=== PATIENT | male | born 1945 | race Caucasian/White ===

== ENCOUNTER → 2021-06-18 10:48 | Outpatient (CLI) | payer OTHER, SELFPAY ==
[2021-06-18 12:47] LABS: BUN Creatinine Ratio 17.1 (6-22); Blood Urea Nitrogen 13 mg/dL (9-20); Calcium 9.7 mg/dL (8.4-10.2); Carbon Dioxide 24 mmol/L (22-32); Chloride 106 mmol/L (98-107); Estimated Glomerular Filt Rate > 60.0 mL/min (>60); Glucose 124 mg/dL (80-110); HEMOLYSIS < 15 (0-50); Sodium 137 mmol/L (137-145)
[2021-06-18 13:15] LABS: TSH w/ Reflex to FT4 3.69 uIU/mL (0.47-4.68)
== END ==
PROVIDERS: Family Provider Orthopaedic Surgery; PCP Student in an Organized Health Care Education/Training Program; Referring Provider Student in an Organized Health Care Education/Training Program; Visit Provider Student in an Organized Health Care Education/Training Program
DX: I10 Essential (primary) hypertension (principal); E87.6 Hypokalemia; R68.89 Other general symptoms and signs
CPT/HCPCS: 36415; 80048; 84443

== ENCOUNTER → 2022-05-28 11:21 | Outpatient (CLI) | payer OTHER, SELFPAY ==
[2022-05-28 12:18] LABS: BUN Creatinine Ratio 16.9 (6-22); Blood Urea Nitrogen 12 mg/dL (9-20); Carbon Dioxide 26 mmol/L (22-32); Chloride 100 mmol/L (98-107); Estimated Glomerular Filt Rate > 60 mL/min (>60); Glucose 115 mg/dL (80-110); HEMOLYSIS 48 (0-50); Sodium 139 mmol/L (137-145)
== END ==
PROVIDERS: Family Provider Orthopaedic Surgery; PCP Student in an Organized Health Care Education/Training Program; Referring Provider Student in an Organized Health Care Education/Training Program; Visit Provider Student in an Organized Health Care Education/Training Program
DX: I10 Essential (primary) hypertension (principal); R73.03 Prediabetes
CPT/HCPCS: 36415; 80048

== ENCOUNTER → 2022-07-01 09:22 | Outpatient (CLI) | payer OTHER, SELFPAY ==
--- NOTE | 2022-07-01 09:23 | DI.US.S_ITS ---
PROCEDURE: US ABDOMEN LIMITED INDICATIONS: RLQ PAIN AND MASS. HERNIA? TECHNIQUE: Real-time focused scanning was performed of the abdomen, with image documentation. COMPARISON: None. FINDINGS: Within the right lower quadrant, there is a hernia seen, which contains echogenic fat and bowel. The abdominal wall defect measures 3.2 cm. At the beginning of the examination, fluid could also be seen within the herniation, yet is not seen at the end of the examination. IMPRESSION: Right lower quadrant abdominal wall hernia, containing fat, bowel, and transient fluid. Surgical consultation is recommended. If clinically appropriate, CT with at least IV contrast could be also be considered for further evaluation. Dictated by: Micah Gomez M.D. on 07/01/2022 at 9:25 Approved by: Micah Gomez M.D. on 07/01/2022 at 9:28
== END ==
PROVIDERS: Family Provider Orthopaedic Surgery; PCP Student in an Organized Health Care Education/Training Program; Referring Provider Student in an Organized Health Care Education/Training Program; Visit Provider Student in an Organized Health Care Education/Training Program
DX: K43.9 Ventral hernia without obstruction or gangrene (principal); R10.31 Right lower quadrant pain
CPT/HCPCS: 76705

== ENCOUNTER → 2022-07-17 10:12 | Outpatient (CLI) | payer OTHER, SELFPAY ==
--- NOTE | 2022-07-17 10:13 | DI.CT.S_ITS ---
PROCEDURE: CT ABDOMEN PELVIS W CON INDICATIONS: preop ventral hernia TECHNIQUE: After the administration of oral and intravenous contrast, axial sections were acquired from the lung bases to the pubic symphysis. Coronal and sagittal reformats were performed. For radiation dose reduction, the following was used: automated exposure control, adjustment of mA and/or kV according to patient size. COMPARISON:None. FINDINGS: Image quality: Excellent. Lung bases: There are multiple bilateral pulmonary soft tissue nodules which appear to be located in a random distribution within the lung bases. The largest measures 8 mm in diameter within the right middle lobe (series 5/image 6). No pleural effusion or pneumothorax. Heart: No significant findings. ABDOMEN: Liver: The liver demonstrates STIR diffuse surface nodularity suggesting cirrhotic transformation. Several hypodense mass lesions are visualized within the liver, including a 3.1 cm lesion within hepatic segment VIII and a 2.7 cm lesion within hepatic segment . Gallbladder: Unremarkable. Biliary ducts: Unremarkable. Pancreas: A centrally hypodense, peripherally enhancing mass is present within the pancreas that measures roughly 4.4 x 6.4 x 3.3 cm. This encompasses the body and tail of the pancreas. The head of the pancreas is grossly normal. Spleen: Unremarkable. Adrenal Glands: Unremarkable. Kidneys and Ureters: Unremarkable. Stomach and Bowel: The stomach is partially filled with contrast. The small bowel demonstrates overall normal course and caliber. There are extensive colonic diverticular outpouchings throughout the colon without discrete perienteric fat stranding or wall thickening. A centrally hypodense, peripherally enhancing spiculated mass is present along the wall of the hepatic flexure which measures approximately 4.6 cm in the axial plane. A similar appearing mass is present just superior to the hepatic flexure within the gallbladder fossa which measures approximately 6.7 cm in the axial plane. Multiple similar appearing centrally relatively hypodense and peripherally enhancing spiculated mass lesions are visualized throughout the peritoneal space. 1 of these spiculated enhancing mass lesions extends into the large right inguinal hernia where there is also some fluid present. Peritoneum: There is diffuse low-density ascites throughout the abdomen. Multiple enhancing peritoneal mass lesions are present as described above. Ventral Wall: No hernia. Abdominal Nodes: No discrete enlarged retroperitoneal lymph nodes visualized; however individual nodes are difficult to characterize. Vessels: There are scattered atheromatous calcifications throughout the aorta and iliac arteries bilaterally. A filling defect is visualized within the superior mesenteric vein and within the central portion of the portal vein suggesting either bland or tumor thrombus. PELVIS: Pelvic Organs: Unremarkable. Bladder: Unremarkable. Pelvic Nodes: No enlarged lymph nodes. Miscellaneous: There are bilateral inguinal hernias. The right inguinal hernia contains both fluid and a portion of an enhancing spiculated mass lesion. The left hernia contains fluid and mesenteric fat. Bones: Unremarkable. IMPRESSION: 1. Multiple abnormal findings associated with a diffuse neoplastic process including: A. Multiple pulmonary nodules at the lung bases consistent with pulmonary metastasis. B. Multiple hypodense hepatic mass lesions suspicious with hepatic metastasis. C. Spiculated mass within the body and tail of the pancreas. D. Multiple spiculated mass lesions throughout the peritoneum, 1 or 2 of which appear to be associated with the colon. E. Questionable tumor thrombus versus bland thrombus within the superior mesenteric vein and portal vein. 2. Bilateral inguinal hernias. The right inguinal hernia likely includes a metastatic peritoneal implant. 3. Diverticulosis. No acute diverticulitis. 4. Large volume low-density ascites. These findings were discussed Dori Henderson RN at 2:55 p.m. On July 17, 2022. Dictated by: Denise Moreno M.D. on 07/17/2022 at 14:37 Approved by: Denise Moreno M.D. on 07/17/2022 at 15:00
[2022-07-17 10:51] LABS: BUN Creatinine Ratio 17.8 (6-22); Blood Urea Nitrogen 13 mg/dL (9-20); Calcium 8.7 mg/dL (8.4-10.2); Carbon Dioxide 21 mmol/L (22-32); Chloride 101 mmol/L (98-107); Estimated Glomerular Filt Rate > 60 mL/min (>60); Glucose 123 mg/dL (80-110); HEMOLYSIS 18 (0-50); Potassium 3.9 mmol/L (3.4-5.1); Sodium 137 mmol/L (137-145)
== END ==
PROVIDERS: Family Provider Orthopaedic Surgery; PCP Student in an Organized Health Care Education/Training Program; Referring Provider Surgery; Visit Provider Surgery
DX: K43.9 Ventral hernia without obstruction or gangrene (principal); R18.8 Other ascites; R91.8 Other nonspecific abnormal finding of lung field; K76.9 Liver disease, unspecified; K86.9 Disease of pancreas, unspecified; K66.9 Disorder of peritoneum, unspecified; K40.20 Bilateral inguinal hernia, without obstruction or gangrene, not specified as recurrent; K57.90 Diverticulosis of intestine, part unspecified, without perforation or abscess without bleeding
CPT/HCPCS: 36415; 74177; 80048; Q9967

== ENCOUNTER 2022-07-18 13:23 | Emergency (ER) | payer OTHER, SELFPAY ==
[2022-07-18 13:59] VITALS: BP 139/77; PULSE 77; RESP 16; TEMP 36.6; O2SAT 98; BMI 31.6
--- NOTE | 2022-07-18 14:14 | PC.NURSE ---
PIV unsuccessful x2
--- NOTE | 2022-07-18 17:24 | CM.IDA ---
Initial Brief DCP Assessment Patient is 77 y/o male who presents to via recommendation from Surgeon Dr. Hilario. Per Dr. Hilario, he is admitting patient to . Patient was originally scheduled for hernia surgery this month but per recent CT scan patient has several masses on pancreas and there is new dx of Pancreatic cancer. Patient's PCP is Dr. Marco A Dugan, patient has, Patient has [facility] insurance. This MARKETING AUTOMATION MANAGER attempted to meet with patient upon arrival to ED, but shortly afterwards patient was admitted to acute care by Dr. Hilario. Per Dr. Hilario, patient is being admitted for pain management and further medical evaluation to determine POC. Per Tamra, MARKETING AUTOMATION MANAGER- [facility] has availability for new intake appt tomorrow if needed and CT scan and face sheet were faxed to them. This MARKETING AUTOMATION MANAGER calls [facility] regarding patient's admission and it is not likely that patient will d/c tomorrow in time for appt as patient has not discussed preference for POC. Plan: DCP to have conversation with patient regarding POC preference after further medical evaluation. Hospice at Home vs. Cancer treatment. JAG Kendall Discharge Planning/Care Management CM Discharge Assessment Start: 07/18/22 17:17 Freq: Status: Active Protocol: Document 07/18/22 17:20 LN (Rec: 07/18/22 17:24 LN [id number]) Discharge Planning Assessment Assigned Gas Distribution Plant Operator JAG Delacruz DPOA/Assigned Designee Name Zainab Mcallister/spouse Contact Information [phone] Advance Directives? No History Provided By Medical Record Has Patient been admitted in last 30 No days? Prior Living Arrangements House Household Members spouse Type of transporation used prior to Drives own vehicle admit Independent with ADL's Yes Is patient alert and oriented? Yes Comment Hospice vs. Cancer treatment Review Status In Process Please Provide Date Initial DC 07/17/22 Assessment Was Performed
[2022-07-18 18:30] LABS: Add Manual Diff / Slide Review NO; Basophils Absolute Auto 100 /uL (0-100); Basophils Percent Auto 0.9 % (0-2); Eosinophils Absolute Auto 100 /uL (0-450); Hematocrit 43.5 % (41-53); Hemoglobin 14.5 g/dL (13.5-17.5); Lymphocytes Absolute Auto 1100 /uL (1100-4500); Lymphocytes Percent Auto 12.2 % (25-40); Mean Corpuscular HGB Conc 33.4 % (30-36); Mean Corpuscular Hemoglobin 30.6 PG (26-34); Mean Corpuscular Volume 91.7 fL (80-100); Monocytes Absolute Auto 1100 /uL (0-900); Monocytes Percent Auto 13.3 % (3-14); Neutrophils Absolute Auto 6300 /uL (1500-7000); Neutrophils Percent Auto 72.6 % (50-75); Platelet Count 231 X10^3/uL (150-400); Red Blood Cell Count 4.75 X10^6/uL (4.5-5.9); Red Cell Distribution Width 14.1 % (11.6-14.8); White Blood Cell Count 8.7 X10^3/uL (4.5-11.0)
[2022-07-18 18:35] LABS: INR 1.3 (0.9-1.3); Prothrombin Time 15.4 SECONDS (10.1-12.7)
[2022-07-18 18:41] LABS: Alanine Aminotransferase 23 IU/L (<50); Albumin 3.6 g/dL (3.5-5.0); Albumin Globulin Ratio 1.1 (1.0-2.8); Alkaline Phosphatase 261 U/L (38-126); Aspartate Aminotransferase 57 IU/L (17-59); BUN Creatinine Ratio 17.3 (6-22); Bilirubin Total 1.1 mg/dL (0.2-1.3); Blood Urea Nitrogen 13 mg/dL (9-20); Calcium 8.8 mg/dL (8.4-10.2); Carbon Dioxide 26 mmol/L (22-32); Chloride 99 mmol/L (98-107); Estimated Glomerular Filt Rate > 60 mL/min (>60); Globulin 3.2 g/dL (1.7-4.1); Glucose 95 mg/dL (80-110); HEMOLYSIS < 15 (0-50); Lipase 171 U/L (23-300); Sodium 134 mmol/L (137-145); Total Protein 6.8 g/dL (6.3-8.2)
--- NOTE | 2022-07-23 10:12 | ED_ITS ---
HPI - Abdominal Pain General Chief Complaint: Abdominal Pain Stated Complaint: Pain Time Seen by Provider: 07/18/22 13:41 Source: patient Mode of arrival: Ambulatory History of Present Illness HPI narrative: 77-year-old male presents with newly diagnosed upper abdominal mass lesion concerning for pancreatic cancer. Patient referred to this hospital for further workup in the inpatient setting. Attempt at admitting the patient as a direct admit was not successful the patient presented to the emergency department for admission. Patient reports diffuse upper abdominal pain, weight loss that has been ongoing for the last several months. Related Data Previous Rx's Medication Instructions Recorded nifedipine 30 mg tablet,extended 30 mg PO DAILY #90 tabs 05/30/22 release 24 hr (Procardia XL) ondansetron 4 mg disintegrating 4 mg PO Q6H PRN nausea and 07/19/22 tablet vomiting #60 tabs oxycodone 5 mg tablet 5 mg PO Q6H PRN pain #75 tabs 07/19/22 Allergies Allergy/AdvReac Type Severity Reaction Status Date / Time sulfur dioxide AdvReac Verified 07/18/22 14:05 Patient History Medical History Allergies (~2000) Bronchitis Chicken pox Measles (~1950) Mumps Osteoarthritis (~2018) Surgical History Anesthesia History of carpal tunnel release (~1965) History of cataract removal with insertion of prosthetic lens (~2004) History of hip replacement (~2019) History of knee replacement (~2009) Family History Mother alf resident Hypertension Social History household members: spouse Smoking Status: Former smoker Smoking Status: Former smoker alcohol intake frequency: 0-2 drinks per day Substance Use Type: does not use Exam Narrative Exam Narrative: Vitals reviewed. Nursing note reviewed Constitutional: interactive HENT: Moist mucous membranes EYES: No scleral icterus NECK: no masses CV: Well perfused peripherally, no cyanosis present PULM: Unlabored respirations, symmetric chest rise ABD: Non-distended MS: No gross deformities, no asymmetric edema noted SKIN: Warm and dry. PSYCH: Appropriate affect NEURO: Follows simple commands, moves extremities, interactive with exam Initial Vital Signs Initial Vital Signs: Vital Signs Temperature 97.8 F 07/18/22 13:59 Pulse Rate 77 07/18/22 13:59 Respiratory Rate 16 07/18/22 13:59 Blood Pressure 139/77 07/18/22 13:59 Pulse Oximetry 98 07/18/22 13:59 Oxygen Delivery Method Room Air 07/18/22 13:59 MDM - Abdominal Pain Lab Data 07/18/22 18:13 07/18/22 18:13 Labs: Lab Results 07/18/22 07/18/22 07/18/22 Range/Units 18:13 18:13 18:13 WBC 8.7 (4.5-11.0) X10^3/uL RBC 4.75 (4.5-5.9) X10^6/uL Hgb 14.5 (13.5-17.5) g/dL Hct 43.5 (41-53) % MCV 91.7 (80-100) fL MCH 30.6 (26-34) PG MCHC 33.4 (30-36) % RDW 14.1 (11.6-14.8) % Plt Count 231 (150-400) X10^3/uL Neut % (Auto) 72.6 (50-75) % Lymph % (Auto) 12.2 L (25-40) % [place] % (Auto) 13.3 (3-14) % Eos % (Auto) 1.0 L (2-4) % Baso % (Auto) 0.9 (0-2) % Neut # (Auto) 6300 (9079-0793) /uL Lymph # (Auto) 1100 (2661-4862) /uL [place] # (Auto) 1100 H (0-900) /uL Eos # (Auto) 100 (0-450) /uL Baso # (Auto) 100 (0-100) /uL PT 15.4 H (10.1-12.7) SECONDS INR 1.3 (0.9-1.3) Sodium 134 L (137-145) mmol/L Potassium 4.0 (3.4-5.1) mmol/L Chloride 99 (98-107) mmol/L Carbon Dioxide 26 (22-32) mmol/L BUN 13 (9-20) mg/dL Creatinine 0.75 (0.66-1.25) mg/dL Estimated GFR > 60 (>60) mL/min BUN/Creatinine Ratio 17.3 (6-22) Glucose 95 (80-110) mg/dL Calcium 8.8 (8.4-10.2) mg/dL Total Bilirubin 1.1 (0.2-1.3) mg/dL AST 57 (17-59) IU/L ALT 23 (<50) IU/L Alkaline Phosphatase 261 H (38-126) U/L Total Protein 6.8 (6.3-8.2) g/dL Albumin 3.6 (3.5-5.0) g/dL Globulin 3.2 (1.7-4.1) g/dL Albumin/Globulin Ratio 1.1 (1.0-2.8) Lipase 171 (23-300) U/L [facility] Narrative Medical decision making narrative: 77-year-old presenting with newly diagnosed pancreatic mass concerning for malignancy. On presentation, vital signs reassuring. Physical exam notable for alert and interactive 77-year-old male who is in no acute distress. Given patient referred to this hospital for direct admission, patient was subsequently admitted for pain control in the setting of newly diagnosed metastatic disease. Patient was admitted shortly after initial evaluation in the emergency department. Discharge Plan Departure Patient Disposition: Home Clinical Impression: Patient left without being seen Prescriptions: No Action nifedipine [Procardia XL] 30 mg tablet extended release 24hr 30 mg PO DAILY Qty: 90 3RF oxycodone 5 mg tablet 5 mg PO Q6H PRN (Reason: pain) Qty: 75 0RF ondansetron 4 mg tablet,disintegrating 4 mg PO Q6H PRN (Reason: nausea and vomiting) Qty: 60 0RF Stand Alone Forms: Patient Portal/API
== END 2022-07-18 17:19 | disposition home or self-care (01) ==
PROVIDERS: Emergency Provider Emergency Medicine; Family Provider Orthopaedic Surgery; PCP Student in an Organized Health Care Education/Training Program
DX: R10.10 Upper abdominal pain, unspecified (principal); C25.9 Malignant neoplasm of pancreas, unspecified
CPT/HCPCS: 36415; 80053; 83690; 85025; 85610

== ENCOUNTER 2022-07-18 18:19 | Observation (INO) | payer OTHER, SELFPAY ==
[2022-07-18 18:26] VITALS: BMI 31.5
--- NOTE | 2022-07-18 19:42 | PM.CALLCOV.1 ---
Call Coverage Note Note Date of Patient Contact: 07/18/22 Narrative of Care Provided: 77 y.o man with new diagnosis of metastatic pancreatic cancer. Underwent CT a/p yesterday for evaluation of abdominal pain found to have widely metastatic pancreatic cancer with involvement of lungs, liver and colon. Spoke with pt via phone to discuss CT results today as he was unable to to come to clinic due to severe abdominal pain. He is here for pain management and likely enrollment in hospice given his extremely poor prognosis. Full H&P to follow in am.
[2022-07-18 20:00] VITALS: BP 143/68; PULSE 68; RESP 18; TEMP 36.7; O2SAT 95
[2022-07-18 20:08] LABS: MRSA (Nasal) PCR Not Detected (Not Detect)
[2022-07-18 20:09] VITALS: O2SAT 96
[2022-07-18] MEDS: OXYCODONE IR 5 MG TABLET PO (21:16)
[2022-07-19] VITALS: BP 139/76; PULSE 69; RESP 17; TEMP 36.1; O2SAT 97
[2022-07-19 00:15] VITALS: O2SAT 95
[2022-07-19 00:41] LABS: COVID19 -Nasal RAPID Negative (Negative)
[2022-07-19 04:00] VITALS: BP 130/80; PULSE 63; RESP 17; TEMP 36.6; O2SAT 97
[2022-07-19 04:07] VITALS: O2SAT 97
[2022-07-19 08:00] VITALS: O2SAT 98
[2022-07-19] MEDS: NIFEdipine 30 MG TAB ER PO (09:24)
--- NOTE | 2022-07-19 10:40 | CM.DANOTE ---
Initial DCP Assessment Note Pt is a 77 yo male, resident of [place], according to Dr Hilario: Underwent CT a/p yesterday for evaluation of abdominal pain found to have widely metastatic pancreatic cancer with involvement of lungs, liver and colon. Spoke with pt via phone to discuss CT results today as he was unable to to come to clinic due to severe abdominal pain. He is here for pain management and likely enrollment in hospice given his extremely poor prognosis. PCP: Marco A Dugan Payer: [facility] Met w/patient and spouse in room with Dr Hilario; reviewed plan for today. Patient/spouse are efren, tearful but in good spirits and appreciative beyond words of Dr Hilario's time and care in this delicate situation Patient and spouse Zainab have decided on Hospice services and have no agency preference. Explained that [facility] had been contacted yesterday to ask about availability, patient/spouse were pleased and requested additional information about [facility] services and RN availability Patient is ambulatory when pain is well managed, as it has been since arrival here last night, and patient encouraged to eat only for comfort now, not to force feed himself if he is not hungry. Both patient spouse state understanding Spouse ready to take patient back home, script [facility] and spouse to excelsior picker. Discussed above efforts w/ RAMIREZ Barboza who plans no to take over coordination of this discharge plan Plan: Discharge expected today, return home w/spouse with [facility] services JULIANNA RAMIREZ Jackman Discharge Planning/Care Management CM Discharge Assessment Start: 07/19/22 10:37 Freq: Status: Active Protocol: Document 07/19/22 10:37 ILYA (Rec: 07/19/22 10:39 ILYA [id number]) Discharge Planning Assessment Assigned Veneer Splicer RAMIREZ Michel DPOA/Assigned Designee Name Zainab Mcallister, spouse Contact Information [phone] Advance Directives? No History Provided By Patient,Significant Other, Medical Record Prior Living Arrangements House Household Members spouse Type of transporation used prior to Drives own vehicle admit Independent with ADL's Yes Is patient alert and oriented? Yes Comment Hospice Barriers to Discharge No Discharge Plan Hospice Transportation Arrangement Spouse Referrals Initiated Other Additional Comment [facility]
--- NOTE | 2022-07-19 11:12 | CM.DPC ---
DCP Discharge Home Per Surgeon, pt's pain seems well managed and pt ambulating independently and started on oxycodone for pain and scripts sent to [facility] so pt and spouse can pickle pumper prior to drive home to [facility]. SW met bedside with pt and spouse and they confirm they are agreeable and comfortable with d/c to home today and no equipment needed. SW provided the Senior Resource Guidebook with earmarked [facility] page and they confirm they are interested in Hospice Info Visit regarding Hospice/Palliative Care but state they are feeling somewhat overwhelmed by the new information of cancer that they are requesting Info Visit on Friday so they have the weekend to process. SHAY called Sherin at [facility] and updated and she is very agreeable to call pt and spouse Friday for Info Visit and SW faxed additional clinicals for review for pt's current admission. SHAY called [facility] and confirmed they received the scripts but have not been filled yet and SW requested if they could fill them soon so pt can d/c home. Plan: Patient to d/c home via spouse POV today and [facility]osp[facility]/Palliative Care to follow for Info Visit Friday and pt may follow up with Oncology after discharge. RAMIREZ Grover
--- NOTE | 2022-07-22 12:49 | P.HP_ITS ---
History of Present Illness History of Present Illness Date Patient Seen: 07/19/22 Time Patient Seen: 12:49 Chief complaint: Pancreatic cancer - Pain control Narrative: Mr. Mcallister is a 77-year-old man with a new diagnosis of metastatic pancreatic cancer. I saw this patient 1 week ago in clinic for evaluation of an elective hernia repair. A preoperative CT abdomen pelvis was obtained and this demonstrated a mass within the pancreatic body and tail with widespread metastatic disease including the lungs liver colon. I was hoping to speak with the patient directly in clinic but when he was contacted he felt he was in too much pain to make an into the office. Therefore I did discuss his diagnosis with him and his . He comes today as a observation for acute abdominal pain and for establishment of hospice. I did speak with the emergency department his primary care provider as well as the internal medicine group and it seemed that the best way to control his pain and enroll him in hospice would be through a brief observation. He is having ongoing generalized abdominal pain anorexia and bloating. Patient History Medical History Allergies (~1999) Bronchitis Chicken pox Measles (~1950) Mumps Osteoarthritis (~2018) Surgical History Anesthesia History of carpal tunnel release (~1965) History of cataract removal with insertion of prosthetic lens (~2004) History of hip replacement (~2019) History of knee replacement (~2009) Family & Social History Family History Mother correction resident Hypertension Social History: household members spouse Prior Living Arrangements House Tobacco & Substance use: Smoking Status Former smoker alcohol intake frequency 0-2 drinks per day Substance Use Type does not use Meds Home Medications and Allergies Home Medications Medication Instructions Recorded Confirmed Type nifedipine 30 mg tablet,extended 30 mg PO DAILY #90 tabs 05/30/22 07/18/22 Rx release 24 hr (Procardia XL) ondansetron 4 mg disintegrating 4 mg PO Q6H PRN nausea and 07/19/22 Rx tablet vomiting #60 tabs oxycodone 5 mg tablet 5 mg PO Q6H PRN pain #75 tabs 07/19/22 Rx Allergies Allergy/AdvReac Type Severity Reaction Status Date / Time sulfur dioxide AdvReac Verified 07/18/22 14:05 Exam Vital Signs (past 8 hours): Oxygen Delivery Method Room Air Oxygen Flow Rate 0 Narrative Exam Narrative: GENERAL: Elderly well developed gentleman appearing stated age, resting uncomfortably HEENT: Normocephalic, atraumatic. No scleral icterus NECK: Full range of motion. No evidence of cervical lymphadenopathy or JVD. CHEST: Rising symmetrically. No audible wheezes CARDIOVASCULAR: Warm and well perfused. Regular rate ABDOMEN: Moderately distended and tender no peritonitis EXTREMITIES: Normal tone and without edema. NEUROLOGIC: Moving all extremities spontaneously. No gross motor deficits. Assessment & Plan Assessment and plan (1) Acute abdominal pain: Status: Acute (2) Pancreatic cancer metastasized to lung: Status: Acute Assessment & Plan narrative: 77-year-old man with new diagnosis of metastatic pancreatic cancer an acute abdominal pain. Patient is hospitalized on observation status for pain control and establishment of hospice services. #Acute Abdominal pain-secondary to wide spread metastatic disease. Multimodal pain control wean to PO #Pancreatic Cancer-I would a lengthy discussion with the patient and his in regards to his diagnosis. I suspect that he had pancreatic cancer involving the body of the organ with subsequent spread to the liver lungs and bowel. I explained to him that he had very advanced disease and we discussed goals of care and he would like to proceed with hospice. Discussed with social work team and services are pending. Time Spent With Patient Critical Care time: I spent a total of [] minutes of critical care time on this patient's care today; this time is exclusive of procedural time.
== END 2022-07-19 11:32 | disposition home or self-care (01) ==
LOC: ICU 07-19 11:08 → AC 07-19 14:03 → ICU 07-19 14:03
PROVIDERS: Admitting Provider Surgery; Family Provider Orthopaedic Surgery; PCP Student in an Organized Health Care Education/Training Program; Referring Provider Surgery; Visit Provider Surgery
DX: C25.1 Malignant neoplasm of body of pancreas (principal); C78.00 Secondary malignant neoplasm of unspecified lung; C78.7 Secondary malignant neoplasm of liver and intrahepatic bile duct; C78.5 Secondary malignant neoplasm of large intestine and rectum; R10.10 Upper abdominal pain, unspecified; K43.9 Ventral hernia without obstruction or gangrene; R91.8 Other nonspecific abnormal finding of lung field; C25.9 Malignant neoplasm of pancreas, unspecified; R18.8 Other ascites; K76.9 Liver disease, unspecified; K86.9 Disease of pancreas, unspecified; K66.9 Disorder of peritoneum, unspecified; K40.20 Bilateral inguinal hernia, without obstruction or gangrene, not specified as recurrent; K57.90 Diverticulosis of intestine, part unspecified, without perforation or abscess without bleeding
CPT/HCPCS: 36415; 74177; 80048; 80053; 83690; 85025; 85610; 87635; 87797; 99281; C9803; G0378; G0379; Q9967